=== PATIENT | male | born 1985 | race American Indian/Alaskan Native ===

== ENCOUNTER 2017-07-15 21:19 | Emergency (ER) | payer SELFPAY ==
[~2017-07-15] VITALS: Ht 200.7 cm; Wt 204.1 kg
[2017-07-15] MEDS ORDERED: COLCHICINE0.6 M1 PO (21:48)
== END 2017-07-15 22:06 | disposition home or self-care (01) ==
LOC: ED 21:19
DX: M10.071 Idiopathic gout, right ankle and foot (principal); Z88.6 Allergy status to analgesic agent
CPT/HCPCS: 99283